=== PATIENT | female | born 1970 | race Caucasian/White ===

== ENCOUNTER → 2018-04-19 | Outpatient (CLI) | payer OTHER ==
[2018-04-19 17:47] LABS: HEMATOCRIT 41.7 % (37-47); HEMOGLOBIN 13.7 g/dL (12.0-16.0)
[2018-04-19 18:19] LABS: ALT/SGPT 29 U/L (12-78); BLOOD UREA NITROGEN 12 mg/dl (7-18); CALCIUM 9.6 mg/dl (8.5-10.1); CARBON DIOXIDE 29 mmol/L (21-32); CHOLESTEROL 134 mg/dl (0-200); CREATININE 0.77 mg/dl (0.60-1.20); GLUCOSE 125 mg/dl (70-99); LDL CHOLESTEROL (DIRECT) 59 mg/dl; POTASSIUM 3.9 mmol/L (3.5-5.1); SODIUM 133 mmol/L (136-145)
[2018-04-19 18:23] LABS: CREATININE RANDOM URINE 59.5 mg/dl
[2018-04-20 05:48] LABS: HEMOGLOBIN A1C 7.6 % (4.5-5.6)
== END | disposition home or self-care (01) ==
LOC: C.LABMFLN 12:52
PROVIDERS: ATTEND Family Medicine
DX: E11.9 Type 2 diabetes mellitus without complications (principal); D64.9 Anemia, unspecified